=== PATIENT | female | born 1990 | race Caucasian/White ===

== ENCOUNTER 2021-01-06 09:37 | Emergency (ER) | payer OTHER, SELFPAY ==
--- NOTE | ~2021-01-06 | CT_ITS ---
EXAMINATION: CT HEAD, CT CERVICAL AND THORACIC SPINE. CLINICAL INFORMATION: Status post fall with head injury. No LOC. Neck and upper back pain. COMPARISON: CT brain and CT cervical spine 01/02/2018. TECHNIQUE: 5 mm thin axial and reformatted 2 mm thin sagittal coronal images of brain were obtained. Axial 3 mm thin and reformatted 2 mm thin images of cervical spine were performed. In addition to minutes thin axial and reformatted 2 mm thin sagittal coronal images of thoracic spine were obtained. DLP [id number]. FINDINGS: Brain: There is no acute intra-axial, extra-axial bleed, masses or midline shift. There is no acute edema or infarction in evolution. The lateral ventricles are symmetrical in size and configuration without enlargement. The mcelroy-white matter difference is maintained normal. Bone windows reveal no calvarial abnormality. There is no scalp soft tissue abnormality. The paranasal sinuses are widely patent. Cervical spine: On sagittal reconstructed images there is mild straightening of cervical lordosis. The vertebral heights, alignment and disc heights are normal. The craniovertebral junction and the C1-C2 alignment is normal. There is no visible acute fracture, dislocation or subluxation seen. The prevertebral and paravertebral soft tissues are normal. The lung apices are clear. The central airway is widely patent. Dorsal spine: There is normal thoracic kyphosis. The vertebral heights, alignment and disc heights are normal. There is no visible acute fracture, dislocation or subluxation seen. The prevertebral and paravertebral soft tissues are normal. Visualized lung parenchyma appears unremarkable. CT/CT thoracic spine wo con IMPRESSION: No acute intracranial process seen. Mild straightening of cervical lordosis likely spasm. No acute fracture or dislocation seen in the cervical or dorsal spine.
--- NOTE | ~2021-01-06 | CT_ITS ---
EXAMINATION: CT HEAD, CT CERVICAL AND THORACIC SPINE. CLINICAL INFORMATION: Status post fall with head injury. No LOC. Neck and upper back pain. COMPARISON: CT brain and CT cervical spine 01/02/2018. TECHNIQUE: 5 mm thin axial and reformatted 2 mm thin sagittal coronal images of brain were obtained. Axial 3 mm thin and reformatted 2 mm thin images of cervical spine were performed. In addition to minutes thin axial and reformatted 2 mm thin sagittal coronal images of thoracic spine were obtained. DLP [id number]. FINDINGS: Brain: There is no acute intra-axial, extra-axial bleed, masses or midline shift. There is no acute edema or infarction in evolution. The lateral ventricles are symmetrical in size and configuration without enlargement. The mcelroy-white matter difference is maintained normal. Bone windows reveal no calvarial abnormality. There is no scalp soft tissue abnormality. The paranasal sinuses are widely patent. Cervical spine: On sagittal reconstructed images there is mild straightening of cervical lordosis. The vertebral heights, alignment and disc heights are normal. The craniovertebral junction and the C1-C2 alignment is normal. There is no visible acute fracture, dislocation or subluxation seen. The prevertebral and paravertebral soft tissues are normal. The lung apices are clear. The central airway is widely patent. Dorsal spine: There is normal thoracic kyphosis. The vertebral heights, alignment and disc heights are normal. There is no visible acute fracture, dislocation or subluxation seen. The prevertebral and paravertebral soft tissues are normal. Visualized lung parenchyma appears unremarkable. CT/CT head/brain wo con IMPRESSION: No acute intracranial process seen. Mild straightening of cervical lordosis likely spasm. No acute fracture or dislocation seen in the cervical or dorsal spine.
[2021-01-06 09:43] VITALS: BP 127/85; PULSE 75; RESP 18; TEMP 36.1; O2SAT 100; BMI 29.0
[2021-01-06] MEDS: Cyclobenzaprine HCl 10 MG TABLET PO (11:25)
[2021-01-06] MEDS: Acetaminophen 325 MG TABLET 975 MG PO (11:25)
[2021-01-06 12:00] LABS: UPreg QC Valid YES; Urine Pregnancy NEGATIVE (NEGATIVE)
--- NOTE | 2021-01-06 13:31 | ED.FALL ---
HPI - Fall General Chief Complaint: Fall Stated Complaint: neck injury - fall Time Seen by Provider: 01/06/21 10:00 Source: patient Mode of arrival: ambulatory Limitations: no limitations History of Present Illness MD complaint: fall Onset (ago): day(s) (Three days ago) Fall from: standing Fall witnessed: no Place fall occurred: street Loss of consciousness: none Prolonged down time: no Symptoms prior to fall: none Context: tripped/slipped (While watering the plants outside) Location of injury: head, neck and back Severity: severe Severity scale (1-10): >10 Quality: aching, spasming and throbbing Associated symptoms (after fall): neck pain (And back pain) Related Data Previous Rx's Medication Instructions Recorded acetaminophen 500 mg tablet 1,000 mg PO QID PRN #14 tab 01/06/21 (Tylenol Extra Strength) cyclobenzaprine 10 mg tablet 10 mg PO Q8H PRN #14 tab 01/06/21 Allergies Allergy/AdvReac Type Severity Reaction Status Date / Time gluten Allergy Rash Verified 01/06/21 09:43 Review of Systems Review of Systems: Constitutional : No Weight loss, No Fever, No Chills, No Night Sweats, No Fatigue, No Malaise ENT/Mouth : No Hearing loss, No Ear Pain, No Nasal Congestion, No Sinus Pain, No Hoarseness, No sore throat, No Rhinorrhea, No Swallowing Difficulty Eyes: No Eye Pain, No Swelling, No Redness, No Foreign Body, No Discharge, No Vision Changes Cardiovascular : No Chest Pain, No SOB, No Dyspnea on Exertion, No Orthopnea, No Edema, No Palpitations Respiratory : No Cough, No Sputum, No Wheezing, No Smoke Exposure, No Dyspnea Gastrointestinal : No Nausea, No Vomiting, No Diarrhea, No Constipation, No abdominal Pain, No Hematochezia, No Melena Genitourinary : no irregular bleeding, No Dysuria, No Urinary Frequency, No Hematuria, No Urinary Incontinence, No Urgency, No Flank Pain, No Urinary Flow Changes, No Hesitancy Musculoskeletal : Positive neck/back pain/injury, No joint pain, No Myalgias, No Joint Swelling Skin : No Skin Lesions, No rash Neuro : No Weakness, No Numbness, No Paresthesias, No Loss of Consciousness, No Dizziness, No Headache Psych : No Anxiety/Panic, No Depression, No SI/HI/AH/VH, No Social Issues, Heme/Lymph: No Bruising, No Bleeding,No Lymphadenopathy Endocrine : No Polyuria, No Polydipsia, No Temperature Intolerance Yes all other systems are reviewed and are negative [facility] Past Medical History Attestation statement: The following information was validated with the patient. Medical History Patient denies allergy Social History Social History Advance Directives: No Patient : No Physical Exam Vital Signs: Vital Signs: Last Vital Signs Temp 96.9 F 01/06/21 09:43 Pulse 75 01/06/21 09:43 Resp 18 01/06/21 09:43 BP 127/85 01/06/21 09:43 Pulse Ox 100 01/06/21 09:43 Body Mass Index 29.0 Vital signs have been reviewed as normal and appeared to be correct. Blood pressure normal. Heart rate normal. Respiration rate normal. Temperature normal. Oxygen saturation normal. Appearance: Alert. Oriented X3. No acute distress. Head: Normal external exam. Normocephalic. Atraumatic. Able to rotate head bilaterally. Eyes: PERRLA. EOMI. No nystagmus noted. Conjunctiva and sclera normal. Eyelids normal. Corneal reflex normal. ENT: EAC normal. TM's Normal. Hearing normal. Pharynx normal. Uvula midline. tongue midline. Moist mucous membranes. No trismus noted. No drooling noted. No muffled voice noted. No nystagmus noted. Neck: Normal inspection. Neck supple. FROM. No adenopathy. Thyroid Normal. Trachea midline. No meningeal signs. No neck mass noted. Tender to palpation of bilateral paracervical musculature and mid cervical tenderness. No step-offs or deformities noted. Patient neuro intact bilaterally and distally on all 4 extremities. Reflexes intact bilaterally and distally in all 4 extremities. No rashes/lesion/induration/fluctuance or signs of infection noted. No edema noted. CVS: Normal heart rate and rhythm. Heart sound normal. No murmurs noted. Pulses normal throughout. Respiratory: No respiratory distress. Painless inspiration. Breath sounds normal. No wheezes/rales/rhonchi noted. Chest nontender. No accessory muscle usage noted or decreased air movement noted. Abdomen: Soft and nontender. Bowel sounds normal in all 4 quadrants. No distention noted. No organomegaly noted. No visible injury noted. Back: No CVA tenderness. Full range of motion noted. No obvious deformities, or edema. Mild para-spinal muscular tenderness from cervical to thoracic. Full ROM in back and lower extremities. 5/5 strength hip extension/flexion, abduction, adduction. Straight leg raise test negative on right; Straight leg raise test negative on left; Reflexes normal ankle and knee bilaterally; EHL motor strength normal bilaterally. No rashes/lesion/induration/fluctuance or signs infection noted. Skin: Skin warm and dry. Normal skin color. Normal skin turgor. No rashes/lesions/lacerations noted. Extremities: Extremities exhibit normal range of motion. Extremities nontender. Able to shrug shoulders bilaterally and keep up against resistance. Neuro: Oriented X 3. No motor deficit. No sensory deficit. Reflexes normal. Moving all extremities. No focal motor deficits. Cranial nerves II-XI intact bilaterally. Facial strength normal. Normal cognition. Speech normal. Gait normal. Strength 5/5 throughout. No pronator drift. No tremor noted. No fasciculations noted. No rigidity noted. Muscle tone normal throughout. No asterixis noted. [id number] test normal. Heel to cortés test normal. Tandem gait normal. Course Course Course Narrative: Patient status post fall while she was watering plants on cement pavement on Tuesday no head injury although she did injure her head/neck and upper back. No other injuries. Not on any blood thinners. No loss of consciousness. CT scan of brain/cervical spine/thoracic spine within normal limits no acute processes are noted. Therefore will DC home with symptomatic treatment instructions return if any new or worsening symptoms to follow up with primary care provider. Patient understands this plan. MDM - Fall Medical Records Attestation: I reviewed the patient's medical records. Lab Data Labs: Lab Results 01/06/21 Range/Units 11:43 Urine Test NEGATIVE (NEGATIVE) Imaging Data CT scan brain/cervical spine/thoracic spine without contrast: Attestation: I personally reviewed and interpreted this imaging study as follows: Radiologist's impression: FINDINGS: Brain: There is no acute intra-axial, extra-axial bleed, masses or midline shift. There is no acute edema or infarction in evolution. The lateral ventricles are symmetrical in size and configuration without enlargement. The mcelroy-white matter difference is maintained normal. Bone windows reveal no calvarial abnormality. There is no scalp soft tissue abnormality. The paranasal sinuses are widely patent. Cervical spine: On sagittal reconstructed images there is mild straightening of cervical lordosis. The vertebral heights, alignment and disc heights are normal. The craniovertebral junction and the C1-C2 alignment is normal. There is no visible acute fracture, dislocation or subluxation seen. The prevertebral and paravertebral soft tissues are normal. The lung apices are clear. The central airway is widely patent. Dorsal spine: There is normal thoracic kyphosis. The vertebral heights, alignment and disc heights are normal. There is no visible acute fracture, dislocation or subluxation seen. The prevertebral and paravertebral soft tissues are normal. Visualized lung parenchyma appears unremarkable. CT/CT cervical spine wo con IMPRESSION: No acute intracranial process seen. ? Mild straightening of cervical lordosis likely spasm. No acute fracture or dislocation seen in the cervical or dorsal spine.? Discharge Plan Discharge Clinical Impression: Head injury, Acute cervical sprain, Sprain of thoracic spine, Muscle spasm Patient Disposition: Home, Self-Care Instructions: Head Injury (ED), Cervical Sprain (ED), Muscle Spasm (ED) Prescriptions: New cyclobenzaprine 10 mg tablet 10 mg PO Q8H PRN (Reason: Muscle spasm) Qty: 14 RF: 0 acetaminophen [Tylenol Extra Strength] 500 mg tablet 1,000 mg PO QID PRN (Reason: fever or pain) Qty: 14 RF: 0 Referrals: Jorge Justin DO [Primary Care Provider] - 2 days Stand Alone Forms: Work/School Release Print Language: Swiss
== END 2021-01-06 13:56 | disposition home or self-care (01) ==
PROVIDERS: Physician Assistant Medical; Emergency Provider Emergency Medicine; PCP Internal Medicine
DX: S16.1XXA Strain of muscle, fascia and tendon at neck level, initial encounter (principal); S29.012A Strain of muscle and tendon of back wall of thorax, initial encounter; M54.50 Low back pain, unspecified; M54.2 Cervicalgia; X50.1XXA Overexertion from prolonged static or awkward postures, initial encounter; Y93.H2 Activity, gardening and landscaping; Y92.007 Garden or yard of unspecified non-institutional (private) residence as the place of occurrence of the external cause; Y99.9 Unspecified external cause status; Z79.899 Other long term (current) drug therapy
CPT/HCPCS: 70450; 72125; 72128; 81025; 99283; 99284

== ENCOUNTER 2024-09-07 07:46 | Emergency (ER) | payer OTHER, SELFPAY ==
[2024-09-07 07:56] VITALS: BP 133/72; PULSE 87; RESP 18; TEMP 36.5; O2SAT 96; BMI 30.8
--- NOTE | 2024-09-07 08:25 | ED.WOUNDLAC ---
HPI - Wound/Laceration General Chief Complaint: Wound/Laceration Stated Complaint: Left Index Finger Lac Time Seen by Provider: 09/07/24 08:23 Source: patient Mode of arrival: ambulatory Limitations: no limitations History of Present Illness ED Provider: harley hobbs np HPI narrative: Patient is a 34-year-old female who presents emergency department for evaluation of accidental laceration to the left index finger. Was using a serrated knife to cut some bread for toes this morning. Laceration to the ulnar aspect of the left 2nd digit. We will use of anticoagulants or known coagulation disorders. No active bleeding. Mild localized pain. Able to flex and extend the digit. Reports last tetanus vaccination 4 years ago Related Data Previous Rx's ?Medication ?Instructions ?Recorded acetaminophen 500 mg tablet 1,000 mg (2 x 500 mg) PO QID PRN 01/06/21 (Tylenol Extra Strength) fever or pain #14 tabs cyclobenzaprine 10 mg tablet 10 mg PO Q8H PRN Muscle spasm #14 01/06/21 tabs Allergies Allergy/AdvReac Type Severity Reaction Status Date / Time gluten Allergy Rash Verified 09/07/24 08:00 Review of Systems Review of Systems: Yes all other systems are reviewed and are negative PMFSH Past Medical History Attestation statement: The following information was validated with the patient. Source: old records reviewed Medical History Patient denies allergy Physical Exam Vital Signs: Vital Signs: Last Vital Signs Temp 97.7 F 09/07/24 07:56 Pulse 87 09/07/24 07:56 Resp 18 09/07/24 07:56 BP 133/72 09/07/24 07:56 Pulse Ox 96 09/07/24 07:56 O2 Del Method Room Air 09/07/24 07:56 BMI result Body Mass Index 30.8 Appearance: Alert.?Oriented to person, place and time. No acute distress.?Normal affect.? CVS: Heart sounds normal. Normal heart rate and rhythm.? Pulses normal.?? Respiratory: No respiratory distress.? Lung sounds clear to auscultation bilaterally?? Skin: Skin warm and dry.? Normal skin color.? left index finger with 2 cm linear laceration along the ulnar aspect of the PIP, with full AROM?? Extremities: No extremity edema.? Neuro: Moves all extremities spontaneously. Sensation intact bilaterally. Ambulates with normal steady gait. Medical Decision Making Medical Decision Making MDM Narrative: Patient is a atrial female who presents emergency department for evaluation of accidental laceration to the left 2nd digit as per HPI. Pertinent physical exam findings as per PE portion of this note. Reviewed methods for closure, she is amenable to closure with suture, wound cleansed with saline and Betadine. Laceration repair under aseptic technique as per procedural portion of this note with Suture. Discussed indication for improvement hemostasis of wound and healing time. Patient acknowledged understanding. Wound with sterile saline irrigation draped in usual fashion with the use of chlorhexidine. Closure with 3 simple intermittent sutures using 5-0 nylon. Patient tolerated well, no complications. Discussed reasons to return including fever or chills, erythema, swelling, pain, purulence or odor from the wound. Advised to return for suture removal in 10-14 days. tetanus vaccination is already up-to-date. Differential Diagnosis Differential Diagnoses: The differential diagnosis associated with the presentation includes ( laceration, retained foreign body, tendon or ligamentous injury, active bleeding) Independent Historian Clinical information obtained from an independent historian. History obtained from or confirmed by: Spouse External Record Review External record reviewed: Outpatient record Prescription Management I considered prescription management with: Pain Medication Procedures Laceration Laceration 1: Site: hand Side (If applicable): left Size (cm): 2 Description: linear Depth: simple, single layer Local Anesthetic: lidocaine 1% Amount of anesthesia used (mL): 4 Pre-repair: wound explored Skin layer closed with: nylon Size (cm): 5-0 Number of sutures: 3 Technique: simple, interrupted Nerve Block Nerve Block 1: Time out performed: Yes Local Anesthetic: lidocaine 1% Amount of anesthesia used (mL): 4 Side: left Nerve Blocks: digital (2nd) Procedure Successful: Yes Patient Tolerated Procedure: well Complications: none Discharge Plan Discharge Clinical Impression: Finger laceration Qualifiers: Encounter type: initial encounter Finger: index finger Damage to nail status: without damage Foreign body presence: without foreign body Laterality: left Qualified Code(s): S61.211A - Laceration without foreign body of left index finger without damage to nail, initial encounter Patient Disposition: Home, Self-Care Instructions: Finger Laceration (ED) Additional Instructions: You may clean the area gently slowly with warm water and mild non scented soap over the next 2 days, dry the area afterwards, otherwise should remain dry until removed.? Avoid prolonged soaking in water such as swimming, soaking in the bath. Sutures will need to be removed in 10-14 days, you may return back to emergency department or follow-up with your primary care doctor for removal Return with any new or worsening symptoms or concerns such as increasing pain, redness, swelling, pus-like discharge, fevers or chills. Prescriptions: No Action cyclobenzaprine 10 mg tablet 10 mg PO Q8H PRN (Reason: Muscle spasm) Qty: 14 0RF acetaminophen [Tylenol Extra Strength] 500 mg tablet 1,000 mg PO QID PRN (Reason: fever or pain) Qty: 14 0RF Referrals: Eleni Horvath NP [Primary Care Provider] - Print Language: Austrian
--- OUTSIDE RECORDS SUMMARY | 2024-09-07 08:33 | XMS_ITS | Clinical Summary ---
Author Organization [facility] ity Address [address] [place] [address] Care Team Providers Care Talcer Name Role Phone Michael Cotton MD Primary Care Provider Allergies Active Allergy Reactions Criticality Noted Date Comments Gluten Rash 10/10/2017 Medications ergocalciferol (VITAMIN D-2) 1,250 mcg (50,000 unit) capsule Take 1 Capsule by mouth once a week. 3 Active traZODone (DESYREL) 50 mg tablet Take 1 Tablet by mouth at bedtime. 3 Active escitalopram (LEXAPRO) 10 mg tablet Take 1 Tablet by mouth daily. 3 Active polyethylene glycol (MIRALAX) 17 gram packet Take 17 g by mouth daily. 3 Active hydrOXYzine pamoate (VISTARIL) 25 mg capsule TAKE 1 CAPSULE BY MOUTH THREE TIMES A DAY NEEDED FOR ITCHINIG 2 Active fluticasone propionate (FLONASE) 50 mcg/actuation nasal spray 2 Sprays by Nasal route daily as needed for Rhinitis. 2 Active famotidine (PEPCID) 20 mg tablet TAKE 1 TABLET BY MOUTH EVERYDAY AT BEDTIME 2 Active levonorgestreL (Kyleena) 17.5 mcg/24 hr (5 yrs) 19.5 mg intrauterine device IUD 19.2 mg by Intrauterine route Once. 2 Active ondansetron (ZOFRAN) 4 mg tablet TAKE 1 TABLET BY MOUTH ONCE DAILY IN THE MORNING NEEDED 2 Active Active Problems Problem Noted Date Diagnosed Date Decreased hearing of left ear 12/03/2020 Benign skin lesion of thigh 12/03/2020 Obesity (BMI 30.0-34.9) 12/24/2019 Seasonal allergies 11/28/2015 Anxiety and depression 10/24/2015 Legally blind in right eye, as defined in [place] Overview (03/30/2024): Vision - 20/100. L eye - 20/20 Immunizations Name Administration Dates Next Due DTP 09/04/1997, 4,1992,09/22,1992 [id number] (Pentacel) 2mo to less than 5yo 09/05/1993,1992,1992,07/18 H1N1 Inj Preservative Free 05/13/2009 HPV, Quadrivalent 05/23/2008,09/14/2007,07/14/19 08 Hepatitis A Adult (Havrix; V aqta) 19yo and older 06/14/2011 Hepatitis B Pediatric (Enger ix B; Recombivax HB) to less than 20 yo 1992,1992,1992 Influenza Quadravalent, MDCK , 0.5ml, preservative free (Flucelvax) 6mo and older 01/22/2021,12/24/2019 Influenza Quadravalent, MDCK , 0.5ml, with preservative (Flucelvax) 6mo and older 03/02/2017 Influenza trivalent, with pr eservative (Fluzone; Afluria) 6mo and older 05/13/2009 MMR, measles mumps and rubel la Live (Priorix; M-M-R II) 12mo and older 09/04/1997,09/05/1993 Meningococcal MCV4P 10/31/2006 OPV 09/04/1997, 4,1992,07/18 PPD Test 08/20/2009 Microland SARS-CoV-2 COVID-19, mRNA, LNP-S, preservative free 01/13/2021,12/23/2020 Td Tetanus diptheria (Tdvax) 7yo and older 11/01/2003 Tdap Tetanus diptheria acell ular pertussis (Boostrix; Adacel) 7yo and older 04/06/2021,06/23/2010 Varicella live (Varivax) 12m o and older 03/16/2011,08/03/1995 Surgical History Surgery Date Site/Laterality Comments OTHER SURGICAL HISTORY PROCEDURE: DENIES PREVIOUS SURGERY Medical History Medical History Date Comments Legally blind in right eye, as defined in [place] 07/09/2015 DX:Legally blind in right ey e, as defined in [place]; COMMENT: Vision - 20/100. L eye - 20/20 Seasonal allergies DX:Seasonal a llergies Anxiety and depression DX:Anxiet y and depression Family History Medical History Relation Name Comments Coronary artery disease Father Hypertension Father Hyperlipidemia, CAD ([place] in his 50s) Hypertension Mother Hyperlipidemia No Known Problems Sister Other: skin cancer Uncle Breast cancer Neg Hx Colon cancer Neg Hx Ovarian cancer Neg Hx Pancreatic cancer Neg Hx Uterine cancer Neg Hx Relation Name Status Comments Father Alive Maternal Grandfather Alive Maternal Grandmother Mother Alive Paternal Grandfather Paternal Grandmother Alive Sister Alive Uncle Alive Social History Tobacco Use Types Packs/Day Years Used Date Smoking Tobacco: Never Smokeless Tobacco: Never Alcohol Use Standard Drinks/Week Comments Not Currently 0 (1 standard drink = 0.6 oz pur e alcohol) Comments Unknown Sex and Gender Information Value Date Recorded Sex Assigned at Female 04/04/2024 9:25 PM EST Legal Sex Female 10:06 PM EST Gender Identity Female 04/04/2024 9:25 PM EST Sexual Orientation Straight 04/04/2024 9: 25 PM EST Obstetrics History Last Filed Vital Signs Vital Sign Reading Time Taken Comments Blood Pressure 126/84 06/17/2022 3:34 PM EDT Pulse 94 06/17/2022 3:34 PM EDT Temperature - - Respiratory Rate - - Oxygen Saturation - - Inhaled Oxygen Concentration - - Weight 105 kg (232 lb) 06/17/2022 3:34 PM EDT Height 167.6 cm (5' 6 ) 06/17/2022 3:34 PM EDT Body Mass Index 37.45 06/17/2022 3:34 PM EDT Plan of Treatment Health Maintenance Due Date Last Done Comments Depression Screening 03/13/2022 Social Influencers of Health Screening 03/13/2022 COVID-19 Vaccine ( season) 2023 01/13/2021, 12/23/2020 Influenza Vaccine (Season Ended) 2024 01/22/2021, 12/24/2019, 03/02/2017, Additional history exists Cervical Cancer Screening: HPV 12/19/2025 12/19/2020 Cholesterol Screening (Lipid Panel) 06/19/2027 06/18/2022 DTaP,Tdap,and Td Vaccines (9 - Td or Tdap) 04/06/2031 04/06/2021, 06/23/2010, 11/01/2003, Additional history exists Hepatitis B Vaccines Completed 1992, 1992, 1992 HIB Vaccines Completed 09/05/1993, 11/02, 1992, Additional history exists IPV Vaccines Completed 09/04/1997, 11/03, 09/05/1993, Additional history exists MMR Vaccines Completed 09/04/1997, 09/05/1993 Meningococcal ACWY Vaccine Aged Out 10/31/2006 N o longer eligible based on patient's age to complete this topic HPV Vaccines Completed 05/23/2008, 09/02, 07/14/2007 Varicella Vaccines Completed 03/16/2011, 08/03/1995 Hepatitis A Vaccines Aged Out 06/14/2011 No long er eligible based on patient's age to complete this topic HIV Screening Completed 03/18/2020 Hepatitis C Screening Completed 06/18/2022 Meningococcal B Vaccine Aged Out No l onger eligible based on patient's age to complete this topic Pneumococcal Vaccine: Pediatrics (0 to 5 Years) and At-Risk Patients (6 to 64 Years) Aged Out No longer eligible based on patient's age to complete this topic RSV Immunization Patients Under 20 months Aged Out No longer eligible based on patient's age to complete this topic Procedures Procedure Name Priority Date/Time Associated Diagnosis Comments HEPATITIS C SCREENING Routine 06/18/2022 LIPID PANEL Routine 06/18/2022 HPV Routine 12/19/2020 HIV SCREENING Routine 03/18/2020 from Last 3 Months or Most Recently Relevant to Health Maintenance Results * Hepatitis C Screening (06/18/2022) Pathologist [facility] Hepatitis C Screening abstracted [facility] Provider HEALTH MAINTENANCE Final Result * (ABNORMAL) Lipid panel (06/18/2022) [facility] LDL/HDL Ratio 4 0 - 4 Triglycerides 69 0 - 150 mg/dL Cholesterol 209(A) 0 - 200 mg/dL HDL 51(A) 0 - 40 mg/dL LDL Cholesterol 145(A) 0 - 100 mg/dL Blood Venous blood specimen / Unknown [facility] Provider LAB BLOOD ORDERABLES Marely l Result * Cervical Cancer Screening: HPV (12/19/2020) [facility] Cervical Cancer Screening: HPV negative abstracted [facility] Provider HEALTH MAINTENANCE Final Result * HIV Screening (03/18/2020) [facility] HIV Screening abstracted [facility] Provider HEALTH MAINTENANCE Final Result from Last 3 Months or Most Recently Relevant to Health Maintenance Care Teams Talcer Relationship Specialty Start Date End Date Michael Cotton MD [address] [place] [address] PCP - General Internal Medicine 06/15/21
[2024-09-07] MEDS: Lidocaine HCl 1 % MPF 5 ML VIAL SUBCUT (08:41)
[2024-09-07 09:19] VITALS: BP 133/72; PULSE 87; RESP 18; TEMP 36.5; O2SAT 96
== END 2024-09-07 09:19 | disposition home or self-care (01) ==
PROVIDERS: Emergency Provider Emergency Medicine; PCP Registered Nurse
DX: S61.211A Laceration without foreign body of left index finger without damage to nail, initial encounter (principal); M79.642 Pain in left hand; W26.0XXA Contact with knife, initial encounter; Y93.G3 Activity, cooking and baking; Y92.9 Unspecified place or not applicable; Y99.8 Other external cause status
CPT/HCPCS: 12001; 64450; 99282; 99284; J2003